=== PATIENT | female | born 1980 | race Caucasian/White ===

== ENCOUNTER 2018-02-10 15:14 | Emergency (ER) | payer OTHER ==
[~2018-02-10] VITALS: Ht 149.9 cm; Wt 77.1 kg
[~2018-02-10 15:14] MED LIST: FOLIC ACID0.4 MG; KLONOPIN1 MG/TAB; LEXAPRO5 MG; METFORMIN HCL500 MG; PRENATAL1 TAB PO; [UNRECOGNIZED DRUG - OTHER]
[2018-02-10] MEDS ORDERED: NEURONTIN800 MG PO (15:41)
[2018-02-10] MEDS ORDERED: BACLOFEN10 MG PO (15:42)
[2018-02-10] MEDS ORDERED: SYNTHROID100 MCG PO (15:42)
[2018-02-10] MEDS ORDERED: PROZAC10 MG PO (15:43)
[2018-02-10] MEDS ORDERED: WELLBUTRIN XL150 M1 PO (15:43)
[2018-02-10] MEDS ORDERED: TRAZODONE HCL100 MG PO (15:44)
== END 2018-02-10 20:09 | disposition home or self-care (01) ==
LOC: ER 15:14
DX: K52.89 Other specified noninfective gastroenteritis and colitis (principal)

== ENCOUNTER 2018-07-11 13:46 | Outpatient (CLI) | payer OTHER ==
[~2018-07-11 13:46] MED LIST changes: +BACLOFEN10 MG PO; +NEURONTIN800 MG PO; +PROZAC10 MG PO; +SYNTHROID100 MCG PO; +TRAZODONE HCL100 MG PO; +WELLBUTRIN XL150 M1 PO
== END 2018-07-11 13:52 | disposition home or self-care (01) ==
LOC: RAD 13:46
DX: M51.84 Other intervertebral disc disorders, thoracic region (principal); M51.9 Unspecified thoracic, thoracolumbar and lumbosacral intervertebral disc disorder

== ENCOUNTER 2018-10-04 08:28 | Outpatient (CLI) | payer OTHER | END 2018-10-04 08:38 | disposition home or self-care (01) | LOC: RAD 08:28 → MAMO-SONO 08:45 | DX: N18.3 Chronic kidney disease, stage 3 (moderate) (principal); I12.9 Hypertensive chronic kidney disease with stage 1 through stage 4 chronic kidney disease, or unspecified chronic kidney disease; N30.00 Acute cystitis without hematuria; N20.0 Calculus of kidney; J45.909 Unspecified asthma, uncomplicated; E03.8 Other specified hypothyroidism; E04.8 Other specified nontoxic goiter; Z68.35 Body mass index [BMI] 35.0-35.9, adult; E78.2 Mixed hyperlipidemia; E55.9 Vitamin D deficiency, unspecified; J32.8 Other chronic sinusitis ==

== ENCOUNTER 2021-06-08 11:31 | Outpatient (CLI) | payer OTHER | END 2021-06-08 11:32 | disposition home or self-care (01) | LOC: LAB 11:31 | PROVIDERS: ATTEND Radiology Diagnostic Radiology | DX: N18.9 Chronic kidney disease, unspecified (principal) ==

== ENCOUNTER → 2021-06-08 | Outpatient (CLI) | payer OTHER | END | disposition home or self-care (01) | LOC: TOM 11:20 | PROVIDERS: ATTEND General Practice | DX: N83.291 Other ovarian cyst, right side (principal); N20.2 Calculus of kidney with calculus of ureter; N13.4 Hydroureter | CPT/HCPCS: 74178; Q9965 ==

== ENCOUNTER 2024-06-07 12:55 | Emergency (ER) | payer OTHER ==
[~2024-06-07] VITALS: Ht 149.9 cm; Wt 68.5 kg
[2024-06-07] MEDS ORDERED: DULOXETINE HCL40 MG PO (13:33)
[2024-06-07] MEDS ORDERED: BUSPIRONE HCL7.5 MG PO (13:33)
[2024-06-07] MEDS ORDERED: METFORMIN HCL500 M4 PO (13:33)
[2024-06-07] MEDS ORDERED: NEO-POLY-DEXAMET5 ML OP (13:34)
[2024-06-07] MEDS ORDERED: DEXAMETHASONE SODIUM PHOSPHATE 4 MG/ML VIAL IM STA (14:18)
[2024-06-07] MEDS ORDERED: ORPHENADRINE CITRATE 30 MG/ML AMPUL IM STA (14:19)
[2024-06-07 15:03] LABS: HEMATOCRIT 42.9 % (36.0-45.00); HEMOGLOBIN 14.9 g/dL (12.0-15.00); MEAN CELL VOLUME 88.1 fL (80.00-100.00); MEAN CORPUSCULAR HEMOGLOBIN 30.7 pg (27.00-32.0); MEAN CORPUSCULAR HGB CONC 34.9 g/dl (32.0-36.0); PLATELET COUNT 214 K/uL (150-450); RED BLOOD COUNT 4.86 M/uL (4.00-6.00); RED CELL DISTRIBUTION WIDTH 13.4 % (11.5-14.5)
== END 2024-06-07 16:13 | disposition home or self-care (01) ==
LOC: ER 12:57
DX: M79.10 Myalgia, unspecified site (principal); Z88.6 Allergy status to analgesic agent
CPT/HCPCS: 36415; 72100; 96372; 99283; J1100; J2360